=== PATIENT | female | born 1980 | race African-American/Black ===

== ENCOUNTER 2019-05-11 10:09 | Inpatient (IN) | payer OTHER ==
[2019-05-11 10:36] VITALS: BMI 23.8
--- NOTE | 2019-05-11 12:25 | HP ---
CIWA Score Nausea/Vomitin Muscle Tremors: 4-Moderate,w/Arms Extend Anxiety: 4-Mod. Anxious/Guarded Agitation: 2 Paroxysmal Sweats: 1-Minimal Palms Moist Orientation: 0-Oriented Tacttile Disturbances: 0-None Auditory Disturbances: 0-None Visual Disturbances: 0-None Headache: 1-Very Mild CIWA-Ar Total Score: 14 - Admission Criteria [facility] Guidelines: Admission for Medically Managed Detox: Requires at least one of the followin. CIWA greater than 12 2. Seizures within the past 24 hours 3. Delirium tremens within the past 24 hours 4. Hallucinations within the past 24 hours 5. Acute intervention needed for co occurring medical disorder 6. Acute intervention needed for co occurring psychiatric disorder 7. Severe withdrawal that cannot be handled at a lower level of care (continued vomiting, continued diarrhea, abnormal vital signs) requiring intravenous medication and/or fluids 8. Patient presents the following: CIWA greater than 12 Admission Criteria Met: Admission criteria met Admission ROS BHS - HPI Chief Complaint: It's getting really bad emotionally - I drink not to feel - I can't deal with everything - I'm tired of it - I sleep with my empty vodka bottles, it's bad. Allergies/Adverse Reactions: Allergies Allergy/AdvReac Type Severity Reaction Status Date / Time shellfish derived Allergy Intermediate Swelling Verified 05/11/19 10:23 cat Allergy Intermediate Swelling Uncoded 05/11/19 10:23 History of Present Illness: 39 yo woman here detox from alcohol - history of seizures and black outs, drinks first thing in the morning. States she sometimes thinks seizure might be due to low blood sugar as she is a diabetic. Has not been for medical care other than ED visits which is where she gets her insulin. History of seeing a psychiatrist but not for several months. Exam Limitations: Clinical Condition - Ebola screening Have you traveled outside of the country in the last 21 days: No ([place]) Have you had contact with anyone from an Ebola affected area: No Do you have a fever: No - Review of Systems Constitutional: Loss of Appetite, Malaise, Changes in sleep, Weakness, Unintentional Wgt. Loss EENT: reports: Blurred Vision Respiratory: reports: No Symptoms reported Cardiac: reports: No Symptoms Reported GI: reports: Diarrhea, Nausea, Abdominal cramping : reports: Dysuria Musculoskeletal: reports: No Symptoms Reported Integumentary: reports: Dryness Neuro: reports: Numbness, Paresthesia, Tremors Endocrine: reports: No Symptoms Reported Hematology: reports: No Symptoms Reported Psychiatric: reports: Judgement Intact, Mood/Affect Appropiate, Orientated x3, Anxious Other Systems: Reviewed and Negative Patient History - Patient Medical History Hx Anemia: No Hx Asthma: No Hx Chronic Obstructive Pulmonary Disease (COPD): No Hx Cancer: No Hx Cardiac Disorders: No Hx Congestive Heart Failure: No Hx Hypertension: No Hx Hypercholesterolemia: No Hx Pacemaker: No Hx Seizures: Yes (oct 2018) Hx Diabetes: Yes (on insulin) Hx Gastrointestinal Disorders: Yes (irritable bowel) Hx Liver Disease: No Hx Genitourinary Disorders: No Hx Sexually Transmitted Disorders: No Hx Renal Disease (ESRD): No Hx Thyroid Disease: No Hx Human Immunodeficiency Virus (HIV): No Hx Hepatitis C: No Hx Depression: Yes (never hospitalized - meds in past (hx remeron)) Hx Suicide Attempt: Yes Hx Bipolar Disorder: No Hx Schizophrenia: No - Patient Surgical History Hx Section: Yes (one) - PPD History Previous Implant?: Yes Documented Results: Negative w/o proof Implanted On Prior [facility] Admission?: No PPD to be Administered?: Yes - Reproductive History Patient is a Female of Child Bearing Age (11 -55 yrs old): Yes - Smoking Cessation Smoking history: Current every day smoker Have you smoked in the past 12 months: Yes Aproximately how many cigarettes per day: 3 Hx Chewing Tobacco Use: No Initiated information on smoking cessation: Yes 'Breaking Loose' booklet given: 05/11/19 (give on floor) - Substance & Tx. History Hx Alcohol Use: Yes Hx Substance Use: No Substance Use Type: Alcohol Hx Substance Use Treatment: No - Substances abused Alcohol Substance route: Oral Frequency: Daily Amount used: 2 pints vodka Age of first use: 19 Date of last use: 05/11/19 Family Disease History - Family Disease History Family Disease History: Heart Disease: Mother (living - HTN), Other: Father ( unknown), Mother, Brother (one- no contact), Sister (two - healthy), Son (one age 19 - emotional disorder) Admission Physical Exam BHS - Vital Signs Vital Signs: Vital Signs - 24 hr 05/11/19 05/11/19 10:22 12:17 Temperature 97.9 F 97.9 F Pulse Rate 112 H 112 H Respiratory 18 18 Rate Blood Pressure 115/69 115/69 - Physical General Appearance: Yes: Nourished, Appropriately Dressed, Mild Distress, Moderate Distress, Tremorous, Anxious HEENTM: Yes: EOMI, Hearing grossly Normal, Normocephalic, Normal Voice, Pharynx Normal Respiratory: Yes: Normal Breath Sounds, No Respiratory Distress Neck: Yes: No masses,lesions,Nodules Breast: Yes: Breast Exam Deferred Cardiology: Yes: Regular Rhythm, Regular Rate Abdominal: Yes: Soft Genitourinary: Yes: Dysuria Back: Yes: Within Normal Limits Musculoskeletal: Yes: full range of Motion, Gait Steady Extremities: Yes: Normal Inspection, Non-Tender, Tremors Neurological: Yes: Fully Oriented, Alert, Normal Mood/Affect, Normal Response, Numbness Integumentary: Yes: Normal Color, Dry, Warm Lymphatic: Yes: Within Normal Limits - Addiitonal Findings: KCW=[id number] (no insulin for 'a few weeks') - Diagnostic (1) Alcohol dependence with uncomplicated withdrawal Current Visit: Yes Status: Chronic (2) Insulin dependent diabetes mellitus Current Visit: Yes Status: Chronic (3) Nicotine dependence Current Visit: Yes Status: Chronic Qualifiers: Nicotine product type: cigarettes Substance use status: uncomplicated Qualified Code(s): F17.210 - Nicotine dependence, cigarettes, uncomplicated (4) History of seizure Current Visit: Yes Status: Chronic (5) Irritable bowel Current Visit: Yes Status: Acute Qualifiers: Irritable bowel syndrome type: with both diarrhea and constipation Qualified Code(s): K58.2 - Mixed irritable bowel syndrome Cleared for Admission [facility] - Detox or Rehab [facility] Level of Care: Medically Managed Detox Regimen/Protocol: Librium Breathalyzer - Breathalyzer Breathalyzer: 0.092 Urine Drug Screen - Test Device Lot number: [id number] Expiration date: 03/05/20 - Control Is test valid?: Yes - Results Drug screen NEGATIVE: Yes Inpatient Rehab Admission - Rehab Decision to Admit Inpatient rehab admission?: No
[2019-05-11] MEDS ORDERED: BISMUTH SUBSALICYLATE 524 MG/30 ML UD PO PRN (12:36)
[2019-05-11] MEDS ORDERED: chlordiazePOXIDE HCL 25 MG CAPSULE PO PRN (12:36)
[2019-05-11] MEDS ORDERED: MAG HYDROX/AL HYDROX/SIMETH 30 ML UNIT-DOSE CUP PO PRN (12:36)
[2019-05-11] MEDS ORDERED: hydrOXYzine HCL 25 MG TABLET (FP) PO PRN (12:36)
[2019-05-11] MEDS ORDERED: IBUPROFEN 400 MG TABLET (FP) PO PRN (12:36)
[2019-05-11] MEDS ORDERED: NICOTINE POLACRILEX 2 MG GUM BUC PRN (12:36)
[2019-05-11] MEDS ORDERED: MAGNESIUM CITRATE 300 ML BOTTLE PO PRN (12:36)
[2019-05-11] MEDS ORDERED: MENTHOL/PHENOL 1 EACH UD MM PRN (12:36)
[2019-05-11] MEDS ORDERED: MAGNESIUM HYDROX 2400MG/30ML ORAL SUSPENSION 30 ML CUP PO PRN (12:36)
[2019-05-11] MEDS ORDERED: chlordiazePOXIDE HCL 25 MG CAPSULE PO ONE (13:45)
[2019-05-11] MEDS: INSULIN SLIDING SCALE (NOVOLOG) 1 VIAL SQ SCH ×2 (16:51→22:59)
[2019-05-11] MEDS: chlordiazePOXIDE HCL 25 MG CAPSULE PO SCH ×2 (17:55→23:00)
[2019-05-11] MEDS: METHOCARBAMOL 500 MG TABLET PO PRN (17:58)
[2019-05-11 19:50] LABS: EPI CELLS 2.9 /HPF (0-5/HPF); HYALINE CASTS 7 /lpf (0-8); URINE APPEARANCE CLEAR; URINE BILIRUBIN NEGATIVE (NEGATIVE); URINE COLOR YELLOW; URINE GLUCOSE (UA) 3+ (NEGATIVE); URINE KETONE 1+ (NEGATIVE); URINE LEUK ESTERASE NEGATIVE (NEGATIVE); URINE NITRITE NEGATIVE (NEGATIVE); URINE PROTEIN 1+ (NEGATIVE); URINE RBC 3 /hpf (0-4); URINE WBC 2 /hpf (0-5)
[2019-05-11] MEDS ORDERED: INSULIN (LEVEMIR) 100 UNITS/ML UNITS SQ SCH (22:00)
[2019-05-11] MEDS: INSULIN (LEVEMIR) 100 UNITS/ML UNITS SQ SCH (22:57)
[2019-05-11] MEDS: THIAMINE HCL 100 MG TABLET (FP) PO SCH (23:00)
[2019-05-11] MEDS: MELATONIN 5 MG TABLETS PO PRN (23:01)
[2019-05-12] MEDS: chlordiazePOXIDE HCL 25 MG CAPSULE PO SCH ×4 (06:29→22:00)
[2019-05-12] MEDS: INSULIN SLIDING SCALE (NOVOLOG) 1 VIAL SQ SCH ×4 (06:48→21:54)
[2019-05-12] MEDS: METHOCARBAMOL 500 MG TABLET PO PRN ×2 (06:51→17:22)
[2019-05-12] MEDS: ACETAMINOPHEN 325 MG TABLET (FP) PO PRN (06:51)
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
--- NOTE | 2019-05-12 09:58 | PN ---
[facility] CIWA - CIWA Score Nausea/Vomitin-Mild Nausea/No Vomiting Muscle Tremors: 3 Anxiety: 1-Mildly Anxious Agitation: 2 Paroxysmal Sweats: 1-Minimal Palms Moist Orientation: 1-Uncertain about Date Tacttile Disturbances: 1-Very Mild Itch/Numbness Auditory Disturbances: 0-None Visual Disturbances: 0-None Headache: 1-Very Mild CIWA-Ar Total Score: 11 S Progress Note (SOAP) Subjective: tremor first alcohol detox "I want to" patient has supportive mother at home "relationship is good" ambulating on hallway discuss aftercare with staff community support approach Objective: 05/12/19 09:59 Vital Signs Temperature 97.3 F L 05/12/19 09:36 Pulse Rate 105 H 05/12/19 09:36 Respiratory Rate 18 05/12/19 09:36 Blood Pressure 102/78 05/12/19 09:36 O2 Sat by Pulse Oximetry (%) Laboratory Last Values POC Glucometer 187 UNITS (80-120) 05/12/19 07:42 Urine Color Yellow 05/11/19 13:42 Urine Appearance Clear 05/11/19 13:42 Urine pH 6.0 (5.0-8.0) 05/11/19 13:42 Ur Specific [place] 1.034 (1.010-1.035) 05/11/19 13:42 Urine Protein 1+ (NEGATIVE) H 05/11/19 13:42 Urine Glucose (UA) 3+ (NEGATIVE) H 05/11/19 13:42 Urine Ketones 1+ (NEGATIVE) H 05/11/19 13:42 Urine Blood Negative (NEGATIVE) 05/11/19 13:42 Urine Nitrite Negative (NEGATIVE) 05/11/19 13:42 Urine Bilirubin Negative (NEGATIVE) 05/11/19 13:42 Urine Urobilinogen 1.0 mg/dL (0.2-1.0) 05/11/19 13:42 Ur Leukocyte Esterase Negative (NEGATIVE) 05/11/19 13:42 Urine WBC (Auto) 2 /hpf (0-5) 05/11/19 13:42 Urine RBC (Auto) 3 /hpf (0-4) 05/11/19 13:42 Urine Casts (Auto) 7 /lpf (0-8) 05/11/19 13:42 U Epithel Cells (Auto) 2.9 /HPF (0-5/HPF) 05/11/19 13:42 Urine Bacteria (Auto) 209.0 /hpf (NEGATIVE) 05/11/19 13:42 05/12/19 10:00 lab pending Assessment: 05/12/19 10:00 alcohol withdrawal sx Plan: continue alcohol detox
[2019-05-12] MEDS: PRENATAL VITAMINS W/ FOLIC ACID TABLET (FP) PO SCH (10:39)
[2019-05-12 11:09] LABS: HEMOGLOBIN 10.9 GM/dL (10.7-15.3); MCH 28.2 pg (25.7-33.7); RBC 3.86 M/mm3 (3.60-5.2)
[2019-05-12 11:49] LABS: HEMATOCRIT 33.5 % (32.4-45.2); MCHC 32.5 g/dl (32.0-36.0); MEAN CELL VOLUME 86.8 fl (80-96); RDW 19.9 % (11.6-15.6); WHITE BLOOD COUNT 5.5 K/mm3 (4.0-10.0)
[2019-05-12 11:54] LABS: PLATELET COUNT 265 K/MM3 (134-434)
[2019-05-12 12:02] LABS: SICKLE CELL SCREEN NEGATIVE (NEGATIVE)
[2019-05-12 12:15] LABS: ALBUMIN 3.9 g/dl (3.4-5.0); CALCIUM 9.2 mg/dL (8.5-10.1); CREATININE 0.4 mg/dL (0.55-1.3); TOT PROT 7.2 g/dl (6.4-8.2)
[2019-05-12 12:19] LABS: POTASSIUM 2.8 mmol/L (3.5-5.1)
[2019-05-12] MEDS: POTASSIUM CHLORIDE TABS 20 MEQ TABLET.ER (FP) PO SCH ×2 (12:44→18:09)
--- NOTE | 2019-05-12 13:58 | EKG ---
Test Reason : Blood Pressure : / mmHG Vent. Rate : 101 BPM Atrial Rate : 101 BPM P-R Int : 130 ms QRS Dur : 092 ms QT Int : 374 ms P-R-T Axes : 059 068 066 degrees QTc Int : 484 ms SINUS TACHYCARDIA LEFT ATRIAL ENLARGEMENT NONSPECIFIC ST ABNORMALITY ABNORMAL ECG Confirmed by MD CLAIRE, OCTAVIO ([id number]) on 05/12/2019 1:58:27 PM Referred By: EVANGELISTA AN, Confirmed By:OCTAVIO RANGEL MD
[2019-05-12] MEDS: MELATONIN 5 MG TABLETS PO PRN (21:55)
[2019-05-12] MEDS: INSULIN (LEVEMIR) 100 UNITS/ML UNITS SQ SCH (21:55)
[2019-05-12] MEDS: MIRTAZAPINE 15 MG TABLET (FP) PO SCH (21:55)
[2019-05-12] MEDS: THIAMINE HCL 100 MG TABLET (FP) PO SCH (21:55)
[2019-05-12] MEDS ORDERED: POTASSIUM CHLORIDE TABS 20 MEQ TABLET.ER (FP) PO SCH (22:00)
[2019-05-13] MEDS: chlordiazePOXIDE HCL 25 MG CAPSULE PO SCH ×4 (06:26→22:01)
[2019-05-13] MEDS: ACETAMINOPHEN 325 MG TABLET (FP) PO PRN (06:26)
[2019-05-13] MEDS: METHOCARBAMOL 500 MG TABLET PO PRN ×2 (06:26→21:46)
[2019-05-13] MEDS: INSULIN SLIDING SCALE (NOVOLOG) 1 VIAL SQ SCH ×4 (08:00→21:48)
[2019-05-13] MEDS ORDERED: POTASSIUM CHLORIDE TABS 20 MEQ TABLET.ER (FP) PO SCH (10:00)
[2019-05-13] MEDS: PRENATAL VITAMINS W/ FOLIC ACID TABLET (FP) PO SCH (10:34)
[2019-05-13 10:43] LABS: POTASSIUM 4.1 mmol/L (3.5-5.1)
--- NOTE | 2019-05-13 11:25 | PN ---
S CIWA - CIWA Score Nausea/Vomitin-Mild Nausea/No Vomiting Muscle Tremors: 2 Anxiety: 2 Agitation: 1-Slight > Activity Paroxysmal Sweats: 1-Minimal Palms Moist Orientation: 1-Uncertain about Date Tacttile Disturbances: 1-Very Mild Itch/Numbness Auditory Disturbances: 0-None Visual Disturbances: 0-None Headache: 0-None Present CIWA-Ar Total Score: 9 BHS Progress Note (SOAP) Subjective: more energy today ambulating on hallway less tremor discuss after at [facility] Objective: 05/13/19 11:32 Vital Signs Temperature 96.9 F L 05/13/19 09:05 Pulse Rate 96 H 05/13/19 10:31 Respiratory Rate 16 05/13/19 09:05 Blood Pressure 98/71 05/13/19 10:31 O2 Sat by Pulse Oximetry (%) Laboratory Last Values WBC 5.5 K/mm3 (4.0-10.0) 05/12/19 07:42 RBC 3.86 M/mm3 (3.60-5.2) 05/12/19 07:42 Hgb 10.9 GM/dL (10.7-15.3) 05/12/19 07:42 Hct 33.5 % (32.4-45.2) 05/12/19 07:42 MCV 86.8 fl (80-96) 05/12/19 07:42 MCH 28.2 pg (25.7-33.7) 05/12/19 07:42 MCHC 32.5 g/dl (32.0-36.0) 05/12/19 07:42 RDW 19.9 % (11.6-15.6) H 05/12/19 07:42 Plt Count 265 K/MM3 (134-434) 05/12/19 07:42 MPV 9.0 fl (7.5-11.1) 05/12/19 07:42 Sickle Cell Screen Negative (NEGATIVE) 05/12/19 07:42 Sodium 135 mmol/L (136-145) L 05/12/19 07:42 Potassium 4.1 mmol/L (3.5-5.1) 05/13/19 08:00 Chloride 91 mmol/L (98-107) L 05/12/19 07:42 Carbon Dioxide 36 mmol/L (21-32) H 05/12/19 07:42 Anion Gap 8 MMOL/L (8-16) 05/12/19 07:42 BUN 15.0 mg/dL (7-18) 05/12/19 07:42 Creatinine 0.4 mg/dL (0.55-1.3) L 05/12/19 07:42 Est GFR (CKD-EPI)AfAm 149.94 05/12/19 07:42 Est GFR (CKD-EPI)NonAf 129.37 05/12/19 07:42 POC Glucometer 344 UNITS (80-120) 05/13/19 11:28 Random Glucose 36 mg/dL (74-106) L* 05/12/19 07:42 Calcium 9.2 mg/dL (8.5-10.1) 05/12/19 07:42 Total Bilirubin 1.0 mg/dL (0.2-1) 05/12/19 07:42 AST 195 U/L (15-37) H 05/13/19 08:00 ALT 171 U/L (13-61) H 05/12/19 07:42 Alkaline Phosphatase 374 U/L (45-117) H 05/12/19 07:42 Total Protein 7.2 g/dl (6.4-8.2) 05/12/19 07:42 Albumin 3.9 g/dl (3.4-5.0) 05/12/19 07:42 Urine Color Yellow 05/11/19 13:42 Urine Appearance Clear 05/11/19 13:42 Urine pH 6.0 (5.0-8.0) 05/11/19 13:42 Ur Specific [place] 1.034 (1.010-1.035) 05/11/19 13:42 Urine Protein 1+ (NEGATIVE) H 05/11/19 13:42 Urine Glucose (UA) 3+ (NEGATIVE) H 05/11/19 13:42 Urine Ketones 1+ (NEGATIVE) H 05/11/19 13:42 Urine Blood Negative (NEGATIVE) 05/11/19 13:42 Urine Nitrite Negative (NEGATIVE) 05/11/19 13:42 Urine Bilirubin Negative (NEGATIVE) 05/11/19 13:42 Urine Urobilinogen 1.0 mg/dL (0.2-1.0) 05/11/19 13:42 Ur Leukocyte Esterase Negative (NEGATIVE) 05/11/19 13:42 Urine WBC (Auto) 2 /hpf (0-5) 05/11/19 13:42 Urine RBC (Auto) 3 /hpf (0-4) 05/11/19 13:42 Urine Casts (Auto) 7 /lpf (0-8) 05/11/19 13:42 U Epithel Cells (Auto) 2.9 /HPF (0-5/HPF) 05/11/19 13:42 Urine Bacteria (Auto) 209.0 /hpf (NEGATIVE) 05/11/19 13:42 POC Urine HCG, Qual Negative 05/11/19 12:18 RPR Titer Nonreactive (NONREACTIVE) 05/12/19 07:42 lab noted ast reduced from 306 to 195 05/13/19 11:33 05/13/19 11:34 Assessment: 05/13/19 11:34 alcohol withdrawal sx Plan: continue alcohol detox
[2019-05-13] MEDS: MIRTAZAPINE 15 MG TABLET (FP) PO SCH (21:44)
[2019-05-13] MEDS: MELATONIN 5 MG TABLETS PO PRN (21:44)
[2019-05-13] MEDS: THIAMINE HCL 100 MG TABLET (FP) PO SCH (21:44)
[2019-05-13] MEDS: INSULIN (LEVEMIR) 100 UNITS/ML UNITS SQ SCH (21:48)
[2019-05-14] MEDS ORDERED: chlordiazePOXIDE HCL 10 MG CAPSULE PO PRN
[2019-05-14] MEDS: chlordiazePOXIDE HCL 10 MG CAPSULE PO SCH ×4 (05:57→22:44)
[2019-05-14] MEDS: INSULIN SLIDING SCALE (NOVOLOG) 1 VIAL SQ SCH ×4 (06:08→21:29)
[2019-05-14] MEDS: PRENATAL VITAMINS W/ FOLIC ACID TABLET (FP) PO SCH (10:38)
[2019-05-14] MEDS: METHOCARBAMOL 500 MG TABLET PO PRN ×2 (10:39→17:49)
[2019-05-14] MEDS ORDERED: LOPERAMIDE HCL 2 MG CAPSULE PO ONE (11:15)
--- NOTE | 2019-05-14 15:13 | PN ---
[facility] CIWA - CIWA Score Nausea/Vomitin-No Nausea/No Vomiting Muscle Tremors: 2 Anxiety: 2 Agitation: 2 Paroxysmal Sweats: 1-Minimal Palms Moist Orientation: 0-Oriented Tacttile Disturbances: 0-None Auditory Disturbances: 0-None Visual Disturbances: 0-None Headache: 0-None Present CIWA-Ar Total Score: 7 S Progress Note (SOAP) Subjective: had diarrhea x 1 after breakfast report pepto [place] not working well for hier discontinue pepto begin imodium denies abdomen pain Objective: 05/14/19 15:12 Vital Signs Temperature 97.3 F L 05/14/19 13:04 Pulse Rate 105 H 05/14/19 13:04 Respiratory Rate 18 05/14/19 13:04 Blood Pressure 110/79 05/14/19 13:04 O2 Sat by Pulse Oximetry (%) Laboratory Last Values WBC 5.5 K/mm3 (4.0-10.0) 05/12/19 07:42 RBC 3.86 M/mm3 (3.60-5.2) 05/12/19 07:42 Hgb 10.9 GM/dL (10.7-15.3) 05/12/19 07:42 Hct 33.5 % (32.4-45.2) 05/12/19 07:42 MCV 86.8 fl (80-96) 05/12/19 07:42 MCH 28.2 pg (25.7-33.7) 05/12/19 07:42 MCHC 32.5 g/dl (32.0-36.0) 05/12/19 07:42 RDW 19.9 % (11.6-15.6) H 05/12/19 07:42 Plt Count 265 K/MM3 (134-434) 05/12/19 07:42 MPV 9.0 fl (7.5-11.1) 05/12/19 07:42 Sickle Cell Screen Negative (NEGATIVE) 05/12/19 07:42 Sodium 135 mmol/L (136-145) L 05/12/19 07:42 Potassium 4.1 mmol/L (3.5-5.1) 05/13/19 08:00 Chloride 91 mmol/L (98-107) L 05/12/19 07:42 Carbon Dioxide 36 mmol/L (21-32) H 05/12/19 07:42 Anion Gap 8 MMOL/L (8-16) 05/12/19 07:42 BUN 15.0 mg/dL (7-18) 05/12/19 07:42 Creatinine 0.4 mg/dL (0.55-1.3) L 05/12/19 07:42 Est GFR (CKD-EPI)AfAm 149.94 05/12/19 07:42 Est GFR (CKD-EPI)NonAf 129.37 05/12/19 07:42 POC Glucometer 282 UNITS (80-120) 05/14/19 11:01 Random Glucose 36 mg/dL (74-106) L* 05/12/19 07:42 Calcium 9.2 mg/dL (8.5-10.1) 05/12/19 07:42 Total Bilirubin 1.0 mg/dL (0.2-1) 05/12/19 07:42 AST 195 U/L (15-37) H 05/13/19 08:00 ALT 171 U/L (13-61) H 05/12/19 07:42 Alkaline Phosphatase 374 U/L (45-117) H 05/12/19 07:42 Total Protein 7.2 g/dl (6.4-8.2) 05/12/19 07:42 Albumin 3.9 g/dl (3.4-5.0) 05/12/19 07:42 Urine Color Yellow 05/11/19 13:42 Urine Appearance Clear 05/11/19 13:42 Urine pH 6.0 (5.0-8.0) 05/11/19 13:42 Ur Specific [place] 1.034 (1.010-1.035) 05/11/19 13:42 Urine Protein 1+ (NEGATIVE) H 05/11/19 13:42 Urine Glucose (UA) 3+ (NEGATIVE) H 05/11/19 13:42 Urine Ketones 1+ (NEGATIVE) H 05/11/19 13:42 Urine Blood Negative (NEGATIVE) 05/11/19 13:42 Urine Nitrite Negative (NEGATIVE) 05/11/19 13:42 Urine Bilirubin Negative (NEGATIVE) 05/11/19 13:42 Urine Urobilinogen 1.0 mg/dL (0.2-1.0) 05/11/19 13:42 Ur Leukocyte Esterase Negative (NEGATIVE) 05/11/19 13:42 Urine WBC (Auto) 2 /hpf (0-5) 05/11/19 13:42 Urine RBC (Auto) 3 /hpf (0-4) 05/11/19 13:42 Urine Casts (Auto) 7 /lpf (0-8) 05/11/19 13:42 U Epithel Cells (Auto) 2.9 /HPF (0-5/HPF) 05/11/19 13:42 Urine Bacteria (Auto) 209.0 /hpf (NEGATIVE) 05/11/19 13:42 POC Urine HCG, Qual Negative 05/11/19 12:18 RPR Titer Nonreactive (NONREACTIVE) 05/12/19 07:42 lab noted Assessment: 05/14/19 15:12 alcohol withdrawal sx Plan: continue alcohol detox
[2019-05-14] MEDS: INSULIN (LEVEMIR) 100 UNITS/ML UNITS SQ SCH (21:29)
[2019-05-14] MEDS: THIAMINE HCL 100 MG TABLET (FP) PO SCH (22:44)
[2019-05-14] MEDS: MIRTAZAPINE 15 MG TABLET (FP) PO SCH (22:44)
[2019-05-14] MEDS: MELATONIN 5 MG TABLETS PO PRN (22:44)
[2019-05-15] MEDS: chlordiazePOXIDE HCL 10 MG CAPSULE PO SCH ×2 (06:07→16:56)
[2019-05-15] MEDS: INSULIN SLIDING SCALE (NOVOLOG) 1 VIAL SQ SCH ×4 (07:41→21:30)
[2019-05-15] MEDS: METHOCARBAMOL 500 MG TABLET PO PRN (10:33)
[2019-05-15] MEDS: PRENATAL VITAMINS W/ FOLIC ACID TABLET (FP) PO SCH (10:33)
--- NOTE | 2019-05-15 13:56 | PN ---
S CIWA - CIWA Score Nausea/Vomitin-No Nausea/No Vomiting Muscle Tremors: 1-None Visible, but [place] Anxiety: 2 Agitation: 2 Paroxysmal Sweats: No Perspiration Orientation: 0-Oriented Tacttile Disturbances: 0-None Auditory Disturbances: 0-None Visual Disturbances: 0-None Headache: 0-None Present CIWA-Ar Total Score: 5 BHS Progress Note (SOAP) Subjective: feeling better today one low bgm episode reduce hs insulin to 20 units modify insulin coverage glucerna 120 ml bid Objective: 05/15/19 13:55 Vital Signs Temperature 97.2 F L 05/15/19 13:18 Pulse Rate 69 05/15/19 13:18 Respiratory Rate 18 05/15/19 13:18 Blood Pressure 127/89 05/15/19 13:18 O2 Sat by Pulse Oximetry (%) Laboratory Last Values WBC 5.5 K/mm3 (4.0-10.0) 05/12/19 07:42 RBC 3.86 M/mm3 (3.60-5.2) 05/12/19 07:42 Hgb 10.9 GM/dL (10.7-15.3) 05/12/19 07:42 Hct 33.5 % (32.4-45.2) 05/12/19 07:42 MCV 86.8 fl (80-96) 05/12/19 07:42 MCH 28.2 pg (25.7-33.7) 05/12/19 07:42 MCHC 32.5 g/dl (32.0-36.0) 05/12/19 07:42 RDW 19.9 % (11.6-15.6) H 05/12/19 07:42 Plt Count 265 K/MM3 (134-434) 05/12/19 07:42 MPV 9.0 fl (7.5-11.1) 05/12/19 07:42 Sickle Cell Screen Negative (NEGATIVE) 05/12/19 07:42 Sodium 135 mmol/L (136-145) L 05/12/19 07:42 Potassium 4.1 mmol/L (3.5-5.1) 05/13/19 08:00 Chloride 91 mmol/L (98-107) L 05/12/19 07:42 Carbon Dioxide 36 mmol/L (21-32) H 05/12/19 07:42 Anion Gap 8 MMOL/L (8-16) 05/12/19 07:42 BUN 15.0 mg/dL (7-18) 05/12/19 07:42 Creatinine 0.4 mg/dL (0.55-1.3) L 05/12/19 07:42 Est GFR (CKD-EPI)AfAm 149.94 05/12/19 07:42 Est GFR (CKD-EPI)NonAf 129.37 05/12/19 07:42 POC Glucometer 157 UNITS (80-120) 05/15/19 12:58 Random Glucose 36 mg/dL (74-106) L* 05/12/19 07:42 Calcium 9.2 mg/dL (8.5-10.1) 05/12/19 07:42 Total Bilirubin 1.0 mg/dL (0.2-1) 05/12/19 07:42 AST 195 U/L (15-37) H 05/13/19 08:00 ALT 171 U/L (13-61) H 05/12/19 07:42 Alkaline Phosphatase 374 U/L (45-117) H 05/12/19 07:42 Total Protein 7.2 g/dl (6.4-8.2) 05/12/19 07:42 Albumin 3.9 g/dl (3.4-5.0) 05/12/19 07:42 Urine Color Yellow 05/11/19 13:42 Urine Appearance Clear 05/11/19 13:42 Urine pH 6.0 (5.0-8.0) 05/11/19 13:42 Ur Specific [place] 1.034 (1.010-1.035) 05/11/19 13:42 Urine Protein 1+ (NEGATIVE) H 05/11/19 13:42 Urine Glucose (UA) 3+ (NEGATIVE) H 05/11/19 13:42 Urine Ketones 1+ (NEGATIVE) H 05/11/19 13:42 Urine Blood Negative (NEGATIVE) 05/11/19 13:42 Urine Nitrite Negative (NEGATIVE) 05/11/19 13:42 Urine Bilirubin Negative (NEGATIVE) 05/11/19 13:42 Urine Urobilinogen 1.0 mg/dL (0.2-1.0) 05/11/19 13:42 Ur Leukocyte Esterase Negative (NEGATIVE) 05/11/19 13:42 Urine WBC (Auto) 2 /hpf (0-5) 05/11/19 13:42 Urine RBC (Auto) 3 /hpf (0-4) 05/11/19 13:42 Urine Casts (Auto) 7 /lpf (0-8) 05/11/19 13:42 U Epithel Cells (Auto) 2.9 /HPF (0-5/HPF) 05/11/19 13:42 Urine Bacteria (Auto) 209.0 /hpf (NEGATIVE) 05/11/19 13:42 POC Urine HCG, Qual Negative 05/11/19 12:18 RPR Titer Nonreactive (NONREACTIVE) 05/12/19 07:42 TB (QFT) Incubation (.) 05/12/19 08:30 TB Test (QFT) Nil 0.17 IU/mL (.) 05/12/19 08:30 TB Test (QFT) Mitogen >10.00 IU/mL (.) 05/12/19 08:30 TB Test (QFT) Antigen 0.23 IU/mL (.) 05/12/19 08:30 TB Test (QFT) Negative (Negative) 05/12/19 08:30 TB Positive Criteria (.) 05/12/19 08:30 lab noted Assessment: 05/15/19 13:56 mild alcohol withdrawal sx Plan: continue alcohol detox
[2019-05-15] MEDS: MELATONIN 5 MG TABLETS PO PRN (21:30)
[2019-05-15] MEDS: MIRTAZAPINE 15 MG TABLET (FP) PO SCH (21:30)
[2019-05-15] MEDS: THIAMINE HCL 100 MG TABLET (FP) PO SCH (21:30)
[2019-05-15] MEDS ORDERED: INSULIN (LEVEMIR) 100 UNITS/ML UNITS SQ SCH (22:00)
[2019-05-16] MEDS ORDERED: chlordiazePOXIDE HCL 10 MG CAPSULE PO ONE (05:00)
[2019-05-16] MEDS: INSULIN SLIDING SCALE (NOVOLOG) 1 VIAL SQ SCH ×2 (08:35→11:30)
[2019-05-16] MEDS: METHOCARBAMOL 500 MG TABLET PO PRN (10:44)
[2019-05-16] MEDS: PRENATAL VITAMINS W/ FOLIC ACID TABLET (FP) PO SCH (10:44)
[2019-05-16 14:31] VITALS: BP 120/76; PULSE 94; TEMP 97.4
--- NOTE | 2019-05-16 16:03 | DS ---
[facility] Detox Discharge Summary Admission Date: 05/11/19 Discharge Date: 05/16/19 - History Present History: Alcohol Dependence Additional Comments: 39 years old female admitted on 05/11/19 for alcohol withdrawal sx medical history of type I diabetes treated with insulin patient has normal to low bgm throughout the hospital stay adjust insulin dosage to avoid low bgm strong recommend the patient return to endocrainologist for insuling adjustment alcohol recovery aftercare [facility] - Physical Exam Results Vital Signs: Vital Signs Temperature 97.4 F L 05/16/19 14:30 Pulse Rate 94 H 05/16/19 14:30 Respiratory Rate 18 05/16/19 14:30 Blood Pressure 120/76 05/16/19 14:30 O2 Sat by Pulse Oximetry (%) Pertinent Admission Physical Exam Findings: alcohol withdrawal sx Laboratory Last Values WBC 5.5 K/mm3 (4.0-10.0) 05/12/19 07:42 RBC 3.86 M/mm3 (3.60-5.2) 05/12/19 07:42 Hgb 10.9 GM/dL (10.7-15.3) 05/12/19 07:42 Hct 33.5 % (32.4-45.2) 05/12/19 07:42 MCV 86.8 fl (80-96) 05/12/19 07:42 MCH 28.2 pg (25.7-33.7) 05/12/19 07:42 MCHC 32.5 g/dl (32.0-36.0) 05/12/19 07:42 RDW 19.9 % (11.6-15.6) H 05/12/19 07:42 Plt Count 265 K/MM3 (134-434) 05/12/19 07:42 MPV 9.0 fl (7.5-11.1) 05/12/19 07:42 Sickle Cell Screen Negative (NEGATIVE) 05/12/19 07:42 Sodium 135 mmol/L (136-145) L 05/12/19 07:42 Potassium 4.1 mmol/L (3.5-5.1) 05/13/19 08:00 Chloride 91 mmol/L (98-107) L 05/12/19 07:42 Carbon Dioxide 36 mmol/L (21-32) H 05/12/19 07:42 Anion Gap 8 MMOL/L (8-16) 05/12/19 07:42 BUN 15.0 mg/dL (7-18) 05/12/19 07:42 Creatinine 0.4 mg/dL (0.55-1.3) L 05/12/19 07:42 Est GFR (CKD-EPI)AfAm 149.94 05/12/19 07:42 Est GFR (CKD-EPI)NonAf 129.37 05/12/19 07:42 POC Glucometer 301 UNITS (80-120) 05/16/19 11:29 Random Glucose 36 mg/dL (74-106) L* 05/12/19 07:42 Calcium 9.2 mg/dL (8.5-10.1) 05/12/19 07:42 Total Bilirubin 1.0 mg/dL (0.2-1) 05/12/19 07:42 AST 195 U/L (15-37) H 05/13/19 08:00 ALT 171 U/L (13-61) H 05/12/19 07:42 Alkaline Phosphatase 374 U/L (45-117) H 05/12/19 07:42 Total Protein 7.2 g/dl (6.4-8.2) 05/12/19 07:42 Albumin 3.9 g/dl (3.4-5.0) 05/12/19 07:42 Urine Color Yellow 05/11/19 13:42 Urine Appearance Clear 05/11/19 13:42 Urine pH 6.0 (5.0-8.0) 05/11/19 13:42 Ur Specific [place] 1.034 (1.010-1.035) 05/11/19 13:42 Urine Protein 1+ (NEGATIVE) H 05/11/19 13:42 Urine Glucose (UA) 3+ (NEGATIVE) H 05/11/19 13:42 Urine Ketones 1+ (NEGATIVE) H 05/11/19 13:42 Urine Blood Negative (NEGATIVE) 05/11/19 13:42 Urine Nitrite Negative (NEGATIVE) 05/11/19 13:42 Urine Bilirubin Negative (NEGATIVE) 05/11/19 13:42 Urine Urobilinogen 1.0 mg/dL (0.2-1.0) 05/11/19 13:42 Ur Leukocyte Esterase Negative (NEGATIVE) 05/11/19 13:42 Urine WBC (Auto) 2 /hpf (0-5) 05/11/19 13:42 Urine RBC (Auto) 3 /hpf (0-4) 05/11/19 13:42 Urine Casts (Auto) 7 /lpf (0-8) 05/11/19 13:42 U Epithel Cells (Auto) 2.9 /HPF (0-5/HPF) 05/11/19 13:42 Urine Bacteria (Auto) 209.0 /hpf (NEGATIVE) 05/11/19 13:42 POC Urine HCG, Qual Negative 05/11/19 12:18 RPR Titer Nonreactive (NONREACTIVE) 05/12/19 07:42 TB (QFT) Incubation (.) 05/12/19 08:30 TB Test (QFT) Nil 0.17 IU/mL (.) 05/12/19 08:30 TB Test (QFT) Mitogen >10.00 IU/mL (.) 05/12/19 08:30 TB Test (QFT) Antigen 0.23 IU/mL (.) 05/12/19 08:30 TB Test (QFT) Negative (Negative) 05/12/19 08:30 TB Positive Criteria (.) 05/12/19 08:30 lab noted patient agrees to bring in medication list and lab report to primary care provider - Treatment Hospital Course: Detox Protocol Followed, Detoxed Safely, Responded well, Discharged Condition Good, Rehab Referral Accepted Patient has Accepted a Rehab Referral to: [facility] - Medication Discharge Medications: Ambulatory Orders Insulin Glargine,Hum.rec.anlog [Lantus] 22 unit SQ HS 05/11/19 Insulin Lispro [Humalog] 100 unit SQ PRN 05/11/19 - Diagnosis (1) Alcohol dependence with uncomplicated withdrawal Status: Acute (2) Insulin dependent diabetes mellitus Status: Chronic (3) Nicotine dependence Status: Acute Qualifiers: Nicotine product type: cigarettes Substance use status: in withdrawal Qualified Code(s): F17.213 - Nicotine dependence, cigarettes, with withdrawal - AMA Did Patient Leave Against Medical Advice: No
== END 2019-05-16 12:25 | disposition home or self-care (01) | DRG 775 ==
LOC: YASAS 10:09 → Y3N 13:26
PROVIDERS: ADMIT Surgery; ATTEND Surgery
PROC: HZ2ZZZZ Detoxification Services for Substance Abuse Treatment (ICD-10-PCS; principal; 2019-05-11)
DX: F10.230 Alcohol dependence with withdrawal, uncomplicated (principal); F17.213 Nicotine dependence, cigarettes, with withdrawal; F10.24 Alcohol dependence with alcohol-induced mood disorder; F32.9 Major depressive disorder, single episode, unspecified; E10.9 Type 1 diabetes mellitus without complications; Z79.4 Long term (current) use of insulin; K58.2 Mixed irritable bowel syndrome; Z86.69 Personal history of other diseases of the nervous system and sense organs
CPT/HCPCS: 36415; 80053; 81003; 81025; 82962; 84132; 84450; 85027; 85660; 86480; 86593; 93005; 93010